=== PATIENT | female | born 1940 ===

== ENCOUNTER 2017-06-23 11:45 | Emergency (ER) | payer MEDICARE ==
[2017-06-23 11:45] VITALS: BMI 31.1
[2017-06-23 12:31] VITALS: RESP 20; TEMP 98.2; O2SAT 95
[2017-06-23] MEDS ORDERED: Naproxen 550 mg Tab PO STA (12:52)
--- NOTE | 2017-06-23 12:57 | ED PDOC ---
Arrival/HPI - General Chief Complaint: Trauma Time Seen by Provider: 06/23/17 12:46 Historian: Patient - History of Present Illness Narrative History of Present Illness (Text): 06/23/17 12:54 76 year old female, with past medical history of hypertension, GERD, arthritis and cholecystectomy, presents to the Emergency department complaining of upper left flank tenderness s/p fall 11:00 am this morning. Patient informs fixing her refrigerator while positioned on a chair, when she tripped and fell on her side. Patient informs worsening pain with movement of left shoulder. Patient denies any chest pain, shortness of breath, abdominal pain, fever, chills, nausea, vomiting, diarrhea, loss of consciousness or any other complaints. Time/Duration: 1-3 hours Symptom Onset: Sudden Symptom Course: Unchanged Quality: Aching Activities at Onset: Light Context: Home Past Medical History - Provider Review Nursing Documentation Reviewed: Yes - Infectious Disease Hx of Infectious Diseases: None - Tetanus Immunization Tetanus Immunization: Unknown - Reproductive Menopause: Yes - Cardiac Hx Pacemaker: No - Neurological Hx Paralysis: No - Hematological/Oncological Hx Blood Transfusions: No - Musculoskeletal/Rheumatological Hx Arthritis: Yes (RA) - Gastrointestinal Hx Gastroesophageal Reflux: Yes - Psychiatric Hx Emotional Abuse: No Hx Physical Abuse: No Hx Substance Use: No - Past Surgical History Past Surgical History: No Previous - Surgical History Hx Cholecystectomy: Yes - Anesthesia Hx Anesthesia: Yes Hx Anesthesia Reactions: No Hx Malignant Hyperthermia: No - Suicidal Assessment Feels Threatened In Home Enviroment: No Family/Social History - Physician Review Nursing Documentation Reviewed: Yes Family/Social History: No Known Family HX Smoking Status: Former Smoker Hx Alcohol Use: No Hx Substance Use: No Hx Substance Use Treatment: No Allergies/Home Meds Allergies/Adverse Reactions: Allergies codeine Adverse Reaction (Verified 06/23/17 12:24) VOMITING pcn Adverse Reaction (Uncoded 06/23/17 12:24) RASH Home Medications: Home Meds Medication Instructions Recorded Confirmed Aspirin [Aspir 81] 81 mg PO DAILY 10/26/13 06/23/17 Clonazepam [Klonopin] 0.5 mg PO HS 10/26/13 06/23/17 Folic Acid 1 mg PO DAILY 10/26/13 06/23/17 Meclizine Hydrochloride [Antivert] 12.5 mg PO PRN PRN 10/26/13 06/23/17 Methotrexate 15 mg IM/IV/SC MON 10/26/13 06/23/17 Metoprolol Succinate [Toprol XL] 25 mg PO QAM 10/26/13 06/23/17 Prednisolone [Prednisolone] 5 mg PO Q48H 10/26/13 06/23/17 Sertraline [Zoloft] 50 mg PO Q48H 10/26/13 06/23/17 Metoprolol Succinate XL [Toprol XL] 12.5 mg PO HS 11/12/14 06/23/17 Review of Systems - Physician Review All systems were reviewed & negative as marked: Yes - Review of Systems Constitutional: Normal. absent: Fevers Eyes: Normal ENT: Normal Respiratory: Normal. absent: SOB Cardiovascular: Normal. absent: Chest Pain Gastrointestinal: Normal. absent: Abdominal Pain, Diarrhea, Nausea, Vomiting Genitourinary Female: Normal Musculoskeletal: Other (upper left flank discomfort) Skin: Normal Neurological: Normal Endocrine: Normal Hemo/Lymphatic: Normal Psychiatric: Normal Physical Exam Vital Signs Reviewed: Yes Vital Signs Temp Pulse Resp BP Pulse Ox 06/23/17 14:15 98.2 F 82 20 149/79 95 06/23/17 12:18 98.2 F 81 20 152/87 H 95 Temperature: Afebrile Blood Pressure: Hypertensive Pulse: Regular Respiratory Rate: Normal Appearance: Positive for: Well-Appearing, Non-Toxic, Comfortable Pain Distress: None Mental Status: Positive for: Alert and Oriented X 3 - Systems Exam Head: Present: Atraumatic, Normocephalic Pupils: Present: PERRL Extroacular Muscles: Present: EOMI Conjunctiva: Present: Normal Mouth: Present: Moist Mucous Membranes Neck: Present: Normal Range of Motion Respiratory/Chest: Present: Clear to Auscultation, Good Air Exchange, Tender to Palpation (Mild left chest wall tenderness ). No: Respiratory Distress, Accessory Muscle Use Cardiovascular: Present: Regular Rate and Rhythm, Normal S1, S2. No: Murmurs Abdomen: Present: Normal Bowel Sounds. No: Tenderness, Distention, Peritoneal Signs Back: Present: Normal Inspection Upper Extremity: Present: Normal Inspection. No: Cyanosis, Edema Lower Extremity: Present: Normal Inspection. No: Edema Neurological: Present: GCS=15, CN II-XII Intact, Speech Normal Skin: Present: Warm, Dry, Normal Color. No: Rashes Psychiatric: Present: Alert, Oriented x 3, Normal Insight, Normal Concentration Medical Decision Making ED Course and Treatment: 06/23/17 12:58 Impression: 76 year old female presents to the Emergency department s/p fall. Plan: -- Naproxen -- X-Ray left ribs -- Reassess and disposition Progress Notes: 06/23/17 17:09 xr initally read as neg by me, however called pt 15 min after dc to discuss non displaced rib fracture. requested pt to retur to er, however she declines and states her pain is controlled. pt states she does wish to be admitted for iv analgesia. encouraged pt to obtain spiormetry and follow upw ith pmd. agrees to return with worsening. 06/23/17 21:36 - RAD Interpretation Radiology Orders: 06/23/17 12:52 RIBS LEFT & PA CHEST [RAD] Stat - Medication Orders Current Medication Orders: Discontinued Medications Naproxen (Anaprox Ds) 550 mg PO STAT STA Stop: 06/23/17 12:53 Last Admin: 06/23/17 13:07 Dose: 550 mg - Scribe Statement The provider has reviewed the documentation as recorded by the Scribe Marley Woodard. All medical record entries made by the Scribe were at my direction and personally dictated by me. I have reviewed the chart and agree that the record accurately reflects my personal performance of the history, physical exam, medical decision making, and the department course for this patient. I have also personally directed, reviewed, and agree with the discharge instructions and disposition. Disposition/Present on Arrival - Present on Arrival Any Indicators Present on Arrival: No History of DVT/PE: No History of Uncontrolled Diabetes: No Urinary Catheter: No History of Decub. Ulcer: No History Surgical Site Infection Following: None - Disposition Have Diagnosis and Disposition been Completed?: Yes Diagnosis: Rib fracture Disposition: HOME/ ROUTINE Disposition Time: 14:09 Condition: STABLE Discharge Instructions (ExitCare): Rib Contusion (ED) Additional Instructions: return to er with worsening symptoms or concerns. Prescriptions: Naproxen 500 mg PO BID PRN #14 tab PRN Reason: Pain, Mild (1-3) Referrals: Jabari Arriaga MD [Primary Care Provider] - Follow up with primary Forms: [email or web address] ([place])
--- NOTE | 2017-06-23 14:26 | RAD ---
PROCEDURE: Radiographs of the Chest and Left Ribs. HISTORY: trauma COMPARISON: None available. TECHNIQUE: Frontal radiograph of the chest and multiple oblique radiographs of the left ribs were obtained. FINDINGS: LEFT RIBS: There is a minimally displaced fracture of the lateral left 6th rib. LUNGS: Clear. PLEURA: No pneumothorax or pleural fluid. CARDIOVASCULAR: Normal sized heart. No pulmonary vascular congestion. OTHER FINDINGS: None. IMPRESSION: Minimally displaced fracture of the left 6th rib
[2017-06-23 14:32] VITALS: BP 149/79; PULSE 82
== END 2017-06-23 14:20 | disposition home or self-care (01) ==
LOC: ED 11:45
DX: S22.32XA Fracture of one rib, left side, initial encounter for closed fracture (principal); W01.0XXA Fall on same level from slipping, tripping and stumbling without subsequent striking against object, initial encounter; I10 Essential (primary) hypertension; K21.9 Gastro-esophageal reflux disease without esophagitis; Z87.891 Personal history of nicotine dependence

== ENCOUNTER 2018-09-10 14:15 | Outpatient (CLI) | payer MEDICARE | END 2018-09-10 14:16 | disposition home or self-care (01) | LOC: RAD 14:16 ==